=== PATIENT | female | born 1985 | race Caucasian/White ===

== ENCOUNTER 2020-06-28 17:44 | Emergency (ER) | payer OTHER ==
[2020-06-28] MEDS ORDERED: Lidocaine 2% with EPINEPHrine 1:100,000 20 ML MDV INJECT ONE (17:55)
[2020-06-28] MEDS ORDERED: Diphtheria,Pertussis(Acell),Tetanus Vaccine 0.5 ML SDV IM ONE (18:00)
[2020-06-28] MEDS ORDERED: Diphtheria/Tetanus Toxoids,Adult (Td) 0.5 ML SDV IM ONE (18:00)
--- NOTE | 2020-06-28 18:09 | EDM.PDOC ---
ED HPI GENERAL MEDICAL PROBLEM - General Chief Complaint: General Stated Complaint: FISH HOOK Time Seen by Provider: 06/28/20 17:50 Source of Information: Reports: Patient History Limitations: Reports: No Limitations - History of Present Illness INITIAL COMMENTS - FREE TEXT/NARRATIVE: Fishing with when a treble hook became embedded in left palm proximal to right index finger Onset: Today, Sudden Onset Date: 06/28/20 Location: Reports: Upper Extremity, Left Worsens with: Reports: None Context: Reports: Trauma Treatments [employer]: Reports: Acetaminophen - Related Data Allergies Allergy/AdvReac Type Severity Reaction Status Date / Time No Known Allergies Allergy Verified 06/28/20 18:15 Social & Family History - Tobacco Use Smoking Status *Q: Never Smoker - Caffeine Use Caffeine Use: Reports: Energy Drinks - Recreational Drug Use Recreational Drug Use: No ED ROS GENERAL - Review of Systems Review Of Systems: See Below Constitutional: Denies: Fever, Chills Respiratory: Denies: Shortness of Breath GI/Abdominal: Denies: Nausea, Vomiting ED EXAM, GENERAL - Physical Exam Exam: See Below Exam Limited By: No Limitations General Appearance: Alert, WD/WN, No Apparent Distress Extremities: Other (Left hand with 1 hook of treble hook present in left palm proximal to left index finger. NO active bleeding. Sensation and circulation intact distal to the wound/FB) ED GENERAL MEDICAL PROCEDURES - Additional/Other Procedure(s) Other (Free Text) Procedure(s): 2% lido with epi 1 cc used to anesthetize area. Hook advanced up thru skin , jr cut off and hook retracted thru skin Bandaid applied . Wound care discussed Course - Vital Signs Last Recorded V/S: Last Vital Signs Temp 98.3 F 06/28/20 17:44 Pulse 73 06/28/20 17:44 Resp 18 06/28/20 17:44 BP 149/84 H 06/28/20 17:44 Pulse Ox 99 06/28/20 17:44 - Orders/Labs/Meds Orders: Active Orders 24 hr Category Date Time Status Vaccines to be Administered [RC] PER UNIT ROUTINE Care 06/28/20 18:00 Active Meds: Medications Discontinued Medications Generic Name Dose Route Start Last Admin Trade Name Freq PRN Reason Stop Dose Admin Tetanus/Diphtheria Toxoids 0.5 ml 06/28/20 18:00 Tenivac IM 06/28/20 18:01 .ONCE ONE Departure - Departure Time of Disposition: 18:14 Disposition: Home, Self-Care 01 Condition: Good Clinical Impression: [place] injury to finger Qualifiers: Encounter type: initial encounter Laterality: left Qualified Code(s): S69.92XA - Unspecified injury of left wrist, hand and finger(s), initial encounter - Discharge Information *PRESCRIPTION DRUG MONITORING PROGRAM REVIEWED*: Not Applicable *COPY OF PRESCRIPTION DRUG MONITORING REPORT IN PATIENT [place]: Not Applicable Instructions: Wound Care, Adult Referrals: PCP,None [Primary Care Provider] - Additional Instructions: Return for signs of infection such as redness, pus drainage red streaks or fever Tetanus immunization was updated today Keep wound clean and dry as possible for next few days Sepsis Event Note (ED) - Evaluation Sepsis Screening Result: No Definite Risk - Focused Exam Vital Signs: Vital Signs Temp Pulse Resp BP Pulse Ox 06/28/20 17:44 98.3 F 73 18 149/84 H 99 - My Orders Last 24 Hours: My Active Orders 06/28/20 18:00 Vaccines to be Administered [RC] PER UNIT ROUTINE - Assessment/Plan Last 24 Hours: My Active Orders 06/28/20 18:00 Vaccines to be Administered [RC] PER UNIT ROUTINE
== END 2020-06-28 18:12 | disposition home or self-care (01) ==
LOC: LB.ED 17:44
DX: S60.451A Superficial foreign body of left index finger, initial encounter (principal); Z23 Encounter for immunization; W45.8XXA Other foreign body or object entering through skin, initial encounter
CPT/HCPCS: 10120; 90471; 90715; 99282; 99283-25